=== PATIENT | female | born 2000 | race Caucasian/White ===

== ENCOUNTER 2024-11-12 16:30 | Inpatient (IN) | payer MEDICAID, SELFPAY ==
[2024-11-12] VITALS (25 sets, daily range): BP systolic 96–124; BP diastolic 53–63; PULSE 60–80; RESP 16; TEMP 36.4; O2SAT 93–100; BMI 34.2
[2024-11-12] MEDS: Lactated Ringers 1,000 ML 999 ML IV (16:40)
[2024-11-12 17:27] LABS: Absolute Lymphocyte Count 1.81 X10^3/uL (0.83-4.51); Absolute Neutrophil Count 12.5 X10^3/uL (2.0-7.7); Basophil# 0.03 X10^3/uL; Basophil% 0.2 % (0-1); Eosinophil# 0.05 X10^3/uL; Eosinophils% 0.3 % (0-5); Hematocrit 38.8 % (37-47); Hemoglobin 13.2 g/dL (12.0-15.0); Lymphocyte # 1.81 X10^3/ul (0.83-4.51); Lymphocyte % 11.9 % (19-41); Mean Corpuscular Hgb 29.2 pg (27.0-32.0); Mean Corpuscular Volume 85.8 fL (81-99); Mean Platelet Vol. 11.8 fl (6.2-12.0); Monocyte# 0.74 X10^3/uL; Monocyte% 4.9 % (0-10); NRBC Flagged by Analyzer 0 % (0-5); Neutrophil # 12.47 X10^3/uL (2.7-7.7); Neutrophil % 82.1 % (47-70); Platelet Count 203 K/mm3 (150-450); RBC Distribution Width CV 12.8 % (11.6-14.6); RBC Distribution Width SD 39.7 fl (35.1-43.9); Red Blood Count 4.52 M/mm3 (4.2-5.4); White Blood Count 15.2 K/mm3 (4.4-11.0)
[2024-11-12] MEDS: Oxytocin 10 UNITS/ML Vial IM (17:28)
[2024-11-12] MEDS: Oxytocin 15 Units/NS 250ml 15 UNITS/250 ML IV.SOLN 83 UNITS IV (17:29)
--- NOTE | 2024-11-12 17:35 | PCM.HP.OB ---
HPI - General General Date of Admission: 11/12/24 Date of Service: 11/12/24 Chief Complaint: contractions HPI Narrative AMPARO COLLINS, is a 24 F who presents with contractions and 8 cm dilated. PFSH PFSH Medical History no medical history Allergy/AdvReac Type Severity Reaction Status Date / Time No Known Allergies Allergy Verified 11/12/24 17:03 Family History no significant family his Surgical History no surgical history Social History Smoking Status: Never smoker History Elective abortions Hx Para 3 Spontaneous abortions Hx # Term Pregnancies Ectopic pregnancies Hx # Pregnancies Multiple births # of living children Vital Signs Vital Signs Vital Signs: Weight Weight: 199 lb 9.6 oz Body Mass Index (BMI) 34.2 Physical Exam Const alert and no apparent distress Constitutional Narrative: Uncomfortable with ctx's Labs Labs Labs: Blood Type B POSITIVE Antibody Screen Pending Hct 38.8 % (37-47) Hgb 13.2 g/dL (12.0-15.0) Syphilis Total Ab Nonreactive (Nonreactive) Assessment & Plan (1) Active labor at term: PLAN: Patient presented at 8 cm with BBOW. AROM for clear fluid. Pelvis adequate and EFW < 4500 grams. Patient precipitously delivered. GBS negative. See delivery report. (2) 40 weeks gestation of : (3) Late care affecting :
[2024-11-12 17:36] LABS: Syphilis Antibodies Nonreactive (Nonreactive)
--- NOTE | 2024-11-12 17:38 | EX.PCM.OBVAG ---
Assessment & Plan (1) Active labor at term: (2) 40 weeks gestation of : Vaginal Delivery Maternal Presentation Maternal Presentation: Active Labor Vaginal Delivery Information Procedure Performed: Spontaneous Vaginal Delivery Surgeon/Practitioner: Cammy Blanco Date of Procedure: 11/12/24 Pre-Procedure Diagnosis: 40 week gestation, active labor at term Post-Procedure Diagnosis: As above Type of anesthesia: None Special Medications: None Estimated Blood Loss: 100 mL Fluids Replaced: N/A Findings Description of procedure: Patient complete and pushing. Head of infant delivered in SURI position. Loose nuchal cord noted x 1 without compression, and not reduced as continued to spontaneously deliver through the nuchal cord. Shoulders and body delivered without force, traction or delay. A vigorous VMI was placed on maternal abdomen. The cord was clamped and cut by FOB after 60 second delay. The placenta delivered spontaneously and was noted to be normal appearing and intact with 3 VC. Fundus firm and bleeding scant. No lacerations noted. A vaginal sweep was performed. Sponge counts were correct. Presentation: Vertex Amniotic Membrane Rupture Type: Artificial Amniotic Fluid Description: Clear Placental Delivery Description: Spontaneous Specimen collected: No Cord Vessel Description: 3 Vessels Cord Entanglement: Around neck x 1, loose Nuchal Cord Compression: Without compression A Gender: Male (1 minute): 8 (5 minute): 9 Delayed Cord Clamping: Yes Post Vaginal Deli Medications given after delivery: IV Pitocin and IM Pitocin Episiotomy Description: None Laceration: None Complication Complications: No
[2024-11-12] MEDS: Benzocaine/Lanolin/Aloe Vera 85 GM Spray 1 SPRAY TOPICAL (23:47)
[2024-11-13 04:40] VITALS: BP 104/53; PULSE 74; RESP 16; TEMP 36.7; O2SAT 97
[2024-11-13] MEDS: Ibuprofen 600 MG Tablet PO (05:23)
--- NOTE | 2024-11-13 07:19 | PN.OBGYN_ITS ---
Subjective Subjective Patient is doing well. Denies chest pain, shortness of breath, lightheadedness, dizziness, leg pain. She is ambulating and voiding without difficulty. She is tolerating a diet without nausea or vomiting. Lochia has been normal. She is breast-feeding. She desires discharge today. Objective Data Objective Data Vital Signs: Vital Signs Temp Pulse Resp BP Pulse Ox O2 Del Method 98.1 F 74 16 104/53 L 97 Room Air 11/13/24 04:40 11/13/24 04:40 11/13/24 04:40 11/13/24 04:40 11/13/24 04:40 11/13/24 04:40 Oxygen Delivery Method Room Air Weight: 199 lb 9.6 oz Body Mass Index (BMI) 34.2 Intake & Output: Intake and Output for Last 24 Hours 11/11/24 11/12/24 11/13/24 23:59 23:59 23:59 Intake Total 916 / 916 Output Total 900 / 900 250 / 250 Balance -250 / -250 Lab / Micro Data 11/12/24 16:40 Labs: Laboratory Results - last 24 hr 11/12/24 16:40: WBC 15.2 H, RBC 4.52, Hgb 13.2, Hct 38.8, MCV 85.8, MCH 29.2, MCHC 34.0, RDW Std Deviation 39.7, RDW Coeff of John Paul 12.8, Plt Count 203, MPV 11.8, Immature Gran % (Auto) 0.600, Neut % (Auto) 82.1 H, Lymph % (Auto) 11.9 L, Harris % (Auto) 4.9, Eos % (Auto) 0.3, Baso % (Auto) 0.2, Absolute Neuts (auto) 12.5 H, Absolute Lymphs (auto) 1.81, Nucleated RBC % 0, Syphilis Total Ab Nonreactive, Blood Type B POSITIVE, Antibody Screen NEGATIVE Physical Exam Const alert and no apparent distress General Appearance: comfortable GI soft to palpation GI Narrative: FF@U Assessment & Plan (1) (spontaneous vaginal delivery): PLAN: Patient is day 1 from a vaginal delivery. She is doing well and desires discharge later today. Discharge instructions reviewed.
--- NOTE | 2024-11-13 07:26 | DCINST_ITS ---
Discharge Instructions Diet Discharge Diet: No restrictions DC O2, CPAP, BIPAP needs Home O2 Discharge instructions: No Dressing / Incision Discharge Activity: May Drive and May Shower Weight Bearing Status: Weight bearing as tolerated Dressing / Incision Call your doctor if you observe: Fever of 101 or Higher, Inability to urinate, Using more than 1 pad per hour, Shortness of breath, Dizziness, Chest pain, Increased palpitations (irregular heartbeat), Calf discomfort and Uncontrolled pain Cleanse incision/area with: Soap & Water Follow Up Care Please Follow Up With: Cammy Blanco DO When: 1 week early 6 week exam Test Results: Test results from this visit will be discussed in further detail at your follow- up appointment, if applicable. Discharge Plan Admission Admit Date/Time: 11/12/24 16:30 Primary Reason for Your Visit: delivery Attending Provider: Cammy Blanco Primary Care Provider: Mariusz Johnson Instructions Patient Instructions: After a Vaginal Delivery (WP) Discharge Orders/Prescriptions Referrals / Follow Up: Mariusz Johnson MD [Primary Care Provider] - Disposition Disposition (needs filled in before D/C Order can be placed): Home, Self Care
[2024-11-13 08:40] VITALS: BP 126/54; PULSE 72; RESP 16; TEMP 36.4; O2SAT 98
[2024-11-13 14:30] VITALS: BP 114/61; PULSE 64; RESP 16; TEMP 36.3; O2SAT 99
--- NOTE | 2024-11-23 11:27 | CASEMGMT ---
Social Work Assessment Labor and Delivery Unit Patient [address]: [address] [place] [address].. [address] [place] [id number] Phone number: [phone] Date of Referral: 11/12/24 Time of Referral:? 1931 Referred By: Cammy Blanco Date of Intervention: ?11/13/24? Time of Intervention:? 1030 Reason for Referral:? anxiety and depression, was on BuSpar, discontinued in January 2024 Sw completed chart review and acknowledges social work consult due to maternal mental health. Sw presented to bedside and introduced self to mother of baby (MOB- Antonia) and father of baby (FOB- Johnson). Sw explained reason for sw involvement and completed psychosocial assessment. History obtained from: medical records, MOB and FOB Household composition: Currently residing in the home is MOB, FOB and their three older children: Faustina (8), Babatunde (4) and Kelly (1). [place] baby, Morris, to be included in residence when ready for discharge. Parents deny any housing struggles or concerns. Patient's parent/guardian status:? ?MOB states that she and FOB were introduced to each other by mutual friends and have been together for ten years. No concerns reported regarding domestic violence or intimate partner violence. Medical History: YARED is 24 year old female who is 5, para 3- now 4 following labor and delivery of . YARED received routine care during with [facility]. YARED presented to hospital and delivered baby via spontaneous vaginal delivery at 40 weeks gestation on 11/12/24. Baby boy, named Morris Davis, was born weighing 7lb 5oz with apgars of 8 and 9 at one and five minutes of life, respectfully. YARED is breast feeding and states that baby will be followed by Dr. Chauhan for pediatrics. ? Educational Status:? Both parents graduated from high school, no advanced education. Parents deny problems with reading, learning or comprehension. Financial Status: Both parents are gainfully employed outside of the home.l FOGerri is self employed and MOB works at [employer]. Infant Supplies:?? All necessary baby supplies obtained, including: car seat, safe sleep space, clothes, diapers and wipes. Childcare/Caregiver(s):? MOB will be the primary caregiver to baby, along with FOB when he is not working. Transportation:?? Both parents have their drivers license and reliable means of transportation, no barriers reported. Programs/Agencies Involved: ?YARED states that she is connected to [employer] insurance, but no other resources that provide financial assistance. ?? Children Services/Legal Issues:??MOB denies prior involvement with children services. No issues or concerns warranting referral to be made at this time. ? Behavioral Health Issues: ??Mental Health History:?No mental health diagnoses or history reported for FOB. MOB states that she has been diagnosed with anxiety and depression. MOB denies any psychopharmacological interventions to help her manage her mental health. ?MOB denies experiencing any baby blues or symptoms after her other three deliveries. ? Substance Use History:??Parents deny substance use prior to and during . Family History: No family history of substance use or significant mental health diagnoses. ? Drug Screens: ??No drug screens observed while completing chart review. Family/Social Stressors:? MOB denies family stressors at this time. Support Systems: MOB states that paternal grandparents are their biggest supports. Depression/Shaken Baby/Safe Sleeping:? Sw educated parents on signs and symptoms of baby blues and depression and anxiety. MOB denies experiencing any mental health struggles following her other three deliveries. FOB states that he would be able to recognize if MOB were having any baby blues or depression or anxiety and would know how to help and support her. Sw educated parents on shaken baby prevention and ABCs of safe sleep. Parents express understanding. ASSESSMENT:? MOB and baby admitted following labor and delivery of . MOB received routine care during . This is fourth baby for parents together. MOB with mental health history but denies having struggled with any symptoms following her other deliveries. YARED has obtained all necessary baby supplies and has natural supports in place. YARED was observed laying comfortably on bed and holding baby in loving manner. MOB states that she feels a diaz and connection with baby. MOB states that she has felt happiness and jeronimo since delivery and denies feeling sad, down, or anxious. MOB was receptive to meeting with sw and was talkative and engaging throughout conversation. PLAN:? No other services requested or indicated. MOB and baby to be discharged when medically ready. Parents were provided literature regarding: signs and symptoms of baby blues and mood and anxiety disorders, Help Me Grow, shaken baby prevention, ABCs of safe sleep and a list of [facility] resources that are available for them should any needs present themselves. Sandie Looney, PLANT CUSTODIAN, SECURITY ADMINISTRATOR
== END 2024-11-13 20:00 | disposition home or self-care (01) | DRG 560 ==
LOC: WPOUT 16:34 → WP 16:34
PROVIDERS: Admitting Provider Obstetrics & Gynecology; PCP Family Medicine; Referring Provider Obstetrics & Gynecology; Visit Provider Obstetrics & Gynecology
DX: O62.3 Precipitate labor (principal); Z37.0 Single live birth; N96 Recurrent pregnancy loss; O69.81X0 Labor and delivery complicated by cord around neck, without compression, not applicable or unspecified; Z3A.40 40 weeks gestation of pregnancy; O99.893 Other specified diseases and conditions complicating puerperium
CPT/HCPCS: 59025; 59050; 85025; 86780; 86850; 86900; 86901; 99221; G0378